=== PATIENT | female | born 1990 | race Caucasian/White ===

== ENCOUNTER 2017-02-17 07:30 | Inpatient (IN) | payer BC ==
[~2017-02-17] VITALS: Ht 154.9 cm; Wt 65.0 kg
[2017-02-17] VITALS (32 sets, daily range): BP systolic 88–146; BP diastolic 51–99; PULSE 68–101; TEMP 98.3–99.2
[~2017-02-17 07:30] MED LIST: BIRTH CONTROL PILL; BUSPAR5 MG PO; CEPHALEXIN500 M1 PO; ESTRADIOL2 MG PO; FERROUS GL325 MG/TAB PO; FLEXERIL10 MG PO; IMODIUM 2MG CAPS2 MG PO; IRON325 M1 PO; LORTAB 5/500 501 TAB PO; MOTRIN 800800 MG/TAB PO; NAFCILLIN10 GM IV; NAPROSYN500 MG PO; PERCOCET 325 MG1 TA2 PO; PHENERGAN 25 TA25 MG PO; PRENATAL1 TA7 PO; PROBIOTIC FORMU1 CAP PO; SEROQUEL50 MG PO; TYLENOL 325MG325 MG PO; [UNRECOGNIZED DRUG - CODE] IV
[2017-02-17 08:22] LABS: BASO # 0.1 (0.0-0.2); BASO % 0.5 % (0.0-2.0); EOS # 0.3 (0.0-0.7); GRAN # 7.2 (1.4-6.5); GRAN % 65.7 % (42.2-75.2); LYMPH # 2.4 (1.2-3.4); LYMPH % 21.8 % (20.0-51.0); MEAN CELL VOLUME 80 fl (80.0-100.0); MEAN CORPUSCULAR HGB CONC 32 g/dl (33.0-37.0); MEAN PLATELET VOLUME 11.6 fl (7.4-10.4); MONO # 0.9 (0.1-0.6); MONO % 8.4 % (1.7-9.3); PLATELET COUNT 218 K/mm3 (130-400); RED BLOOD COUNT 3.58 M/mm3 (4.10-5.30); REDCELL DISTRIBUTION WIDTH-CV 13.2 % (11.5-14.5); WHITE BLOOD COUNT 10.9 K/mm3 (4.8-10.8)
[2017-02-17 08:27] LABS: HEMATOCRIT 28.7 % (37.0-47.0); HEMOGLOBIN 9.2 g/dl (12.5-16.0); MEAN CORPUSCULAR HEMOGLOBIN 26 pg (27.0-31.0)
[2017-02-17 11:43] LABS: HIV-1p24 Antigen Non-Reactive
[2017-02-17 11:44] LABS: HIV 1/2 Antibodies Non-Reactive
[2017-02-17 12:45] LABS: PH 6 (5-8); SQUAMOUS EPITHELIAL 0-2 /hpf; URINE APPEARANCE Clear; URINE BACTERIA None Seen /hpf; URINE BILIRUBIN Negative (NEGATIVE); URINE BLOOD 1+ (NEGATIVE); URINE COLOR Yellow; URINE GLUCOSE Negative (NEGATIVE); URINE KETONE Negative (NEGATIVE); URINE RBC 20-50 /hpf; URINE UROBILINOGEN Negative (NEGATIVE)
[2017-02-17 13:00] LABS: AMPHETAMINE URINE POSITIVE; BARBITURATES URINE NEGATIVE; BENZODIAZEPINES URINE NEGATIVE; BUPRENORPHINE URINE NEGATIVE; METHADONE URINE NEGATIVE; OPIATES URINE NEGATIVE; OXYCODONE URINE POSITIVE; PHENCYCLIDINE URINE NEGATIVE; PROPOXYPHENE URINE NEGATIVE; THC CANNABINOIDS URINE NEGATIVE
[2017-02-18 03:00] VITALS: BP 128/70; PULSE 88; TEMP 98.5
[2017-02-18 07:30] VITALS: BP 114/75; PULSE 79
[2017-02-18] MEDS ORDERED: IBU800 M1 PO (08:49)
[2017-02-19 14:38] LABS: RUBELLA IGG TORCH EIA Positive (())
[2017-02-19 14:55] LABS: RUBELLA AB IGG 1.45 OD Ratio (>1.09)
== END 2017-02-18 15:46 | disposition home or self-care (01) | DRG 775 ==
LOC: LDRO 07:30 → LDR 07:40 → OB 07:40
PROVIDERS: Obstetrics & Gynecology
PROC: 10E0XZZ Delivery of Products of Conception, External Approach (ICD-10-PCS; principal; 2017-02-17)
DX: O99.334 Smoking (tobacco) complicating childbirth (principal); F17.210 Nicotine dependence, cigarettes, uncomplicated; O09.33 Supervision of pregnancy with insufficient antenatal care, third trimester; O99.02 Anemia complicating childbirth; D64.9 Anemia, unspecified; O69.1XX0 Labor and delivery complicated by cord around neck, with compression, not applicable or unspecified; O99.324 Drug use complicating childbirth; F15.90 Other stimulant use, unspecified, uncomplicated; Z3A.37 37 weeks gestation of pregnancy; Z37.0 Single live birth
CPT/HCPCS: J2540; J2590; J7120

== ENCOUNTER 2017-09-10 22:56 | Emergency (ER) | payer BC ==
[~2017-09-10] VITALS: Ht 154.9 cm; Wt 52.3 kg
[~2017-09-10 22:56] MED LIST changes: +IBU800 M1 PO
[2017-09-10 23:00] VITALS: BP 120/78; PULSE 108; TEMP 97.8
== END 2017-09-10 23:58 | disposition home or self-care (01) ==
LOC: COL.ER 22:56
DX: H57.12 Ocular pain, left eye (principal); F17.210 Nicotine dependence, cigarettes, uncomplicated; I38 Endocarditis, valve unspecified